=== PATIENT | female | born 1960 | race Two or more races ===

== ENCOUNTER 2017-06-04 13:45 | Day surgery (SDC) | payer OTHER ==
[~2017-06-04] VITALS: Ht 154.9 cm; Wt 84.5 kg
[2017-06-04 14:59] VITALS: Ht 154.9 cm; Wt 84.5 kg
[2017-06-04] MEDS ORDERED: LOSA100T7 PO (15:03)
[2017-06-04] MEDS ORDERED: HYDR-3672 PO (15:03)
[2017-06-04] MEDS ORDERED: OMEP20CA16 PO (15:03)
[2017-06-04 16:36] VITALS: BP 134/84; PULSE 76
--- NOTE | 2017-06-04 17:40 | OPPN ---
Date/Time of Note Date/Time of Note DATE: 06/04/17 TIME: 17:37 Proc Note GI Procedure Date 06/04/17 Pre-procedure Diagnosis * Dyspepsia Post-procedure Diagnosis Assessment: * Moderate gastritis. Rule out H. pylori infection. Biopsies obtained * Otherwise normal EGD Plan: * PPI therapy * Review pathology * Follow-up as previously scheduled Surgeon DI NAM MD Scrap Piler none Anesthesia Type: moderate sedation (Versed 4 mg, fentanyl 75 mcg administer push) Tourniquet Time none EBL none Transfusion required none Biopsy 1: Gastric body and antrum/rule out H. pylori infection Grafts/Implants none Tubes/Drains none Complication(s) none Pt Condition post procedure: stable Disposition: home Indications: other (Pepcid) Procedure Description After informed consent, with the patient/relatives understanding the procedure, its indications, potential risks and complications, including but not limited to : allergic reaction, bleeding, perforation or infection, and after all pertinent questions were answered to the patients satisfaction, the patient/ relatives signed witnessed informed consent. Following this, premedication was administered slowly IV push under careful cardiovascular and respiratory monitoring with pulse oximetry, automatic blood pressure, and basketball coach. Once the sedative effect was achieved the patient was place in the left lateral decubitus, the panendoscope was introduced and advanced under visual control. Careful examination of the upper gastrointestinal tract, both on insertion as well as withdrawal of the instrument disclosing the following findings: ESOPHAGUS: the mucosa of the entire esophagus was carefully examined and showed the following findings: the mucosa appears within normal limits. There is no evidence of esophagitis, varices, neoplasm, or stricture. No Hiatal Hernia identified. STOMACH: Upon entrance to the stomach air was insufflated, the gastric gee distended normally. The mucosa of the fundus, body and antrum of the stomach was carefully examined both head-on and on retroflexion, and showed the following findings: There is moderate erythema and edema of the mucosa of the body and antrum of the stomach. Biopsies were obtained to rule out H. pylori infection. Otherwise the mucosa appears within normal limits with no abnormalities. There is no evidence of ulcers or neoplasm. PYLORUS: The pylorus was carefully examined and showed the following findings: the pylorus appears patent and within normal limits, with no evidence of gastric outlet obstruction. DUODENUM: The duodenal mucosa was carefully examined in the duodenal bulb as well as the second portion of the duodenum and showed the following findings: the mucosa appears unremarkable with no evidence of duodenitis, ulcer or neoplasm. Copies To: CC: DI NAM MD, MORDO MD Jun 04, 2017 17:40
--- NOTE | 2017-06-04 17:43 | OPPN ---
Date/Time of Note Date/Time of Note DATE: 06/04/17 TIME: 17:40 Proc Note GI Procedure Date 06/04/17 Pre-procedure Diagnosis * Colon cancer screening Post-procedure Diagnosis Assessment: * Two 3-4 mm polyps in the proximal ascending colon. Ablated * Moderate diverticulosis left side of the colon. * Moderate-sized internal hemorrhoids * Otherwise normal colonoscopy to cecum Plan: * Review pathology as soon as available * Annual Hemoccult stool testing * Surveillance colonoscopy in 5 years Procedure Performed: Colonoscopy (With polyp ablation) Surgeon see signature line Bottler Helper none Anesthesia Type: moderate sedation (Versed 4 mg, fentanyl 75 mcg administer push) Tourniquet Time none EBL none Transfusion required none Biopsy 1: Gastric body and antrum/rule out H. pylori infection Grafts/Implants none Tubes/Drains none Complication(s) none Pt Condition post procedure: stable Disposition: home DI NAM MD Jun 04, 2017 17:43
[2017-06-04] MEDS ORDERED: MIDAZOLAM 1 MG/ML 2 ML INJ ONE ×2 (17:44)
[2017-06-04] MEDS ORDERED: FENTAnyl 50 MCG/ML VIAL ONE (17:44)
[2017-06-04 18:19] VITALS: BP 186/94; PULSE 76; RESP 22
[2017-06-04] MEDS ORDERED: HYOSCYAMINE 0.125 MG SUBL TAB SL ONE (18:30)
== END 2017-06-04 18:53 | disposition home or self-care (01) ==
LOC: GIL 13:45
PROVIDERS: ATTEND Internal Medicine Gastroenterology
DX: Z12.11 Encounter for screening for malignant neoplasm of colon (principal); D12.2 Benign neoplasm of ascending colon; K29.50 Unspecified chronic gastritis without bleeding; K57.30 Diverticulosis of large intestine without perforation or abscess without bleeding; K64.8 Other hemorrhoids
CPT/HCPCS: 43239; 45380; 88305; 88312; J2250; J3010; Z7610